=== PATIENT | female | born 1930 | race Caucasian/White ===

== ENCOUNTER 2017-02-12 11:35 | Emergency (ER) | payer MEDICARE, BC ==
[2017-02-12 11:39] VITALS: RESP 13; TEMP 98.5
[2017-02-12 12:28] LABS: APPEARANCE,URINE SLIGHTLY CLOUDY; COLOR,URINE YELLOW; GLUCOSE, URINE (UA) NEGATIVE (NEGATIVE); KETONES,URINE NEGATIVE (NEGATIVE); NITRATE,URINE NEGATIVE (NEGATIVE); OCCULT BLOOD,URINE TRACE INTACT (NEG-TRACE); PH,URINE 7.5
[2017-02-12 12:29] LABS: BILIRUBIN,URINE NEGATIVE (NEGATIVE); LEUKOCYTE ESTERASE ,URINE 2+ (NEGATIVE); RBC,URINE 0-2 (0-3AV/HPF); UROBILINOGEN,URINE 0.2 (0.2-1.0 EU)
[2017-02-12 12:42] LABS: BASOPHILS % (AUTO) 0 % (0-3); EOSINOPHILS % (AUTO) 0 % (0-9); HEMATOCRIT 31 % (35-47); MEAN CORPUSCULAR HGB CONC 35.6 gm/dl (32.0-36.0); MEAN CORPUSCULAR VOLUME 92 fL (81-99); MONOCYTES % (AUTO) 7.7 % (0-12); NEUTROPHILS % (AUTO) 78.3 % (37-80)
[2017-02-12 13:02] VITALS: BP 157/49; PULSE 72; O2SAT 98
[2017-02-12 13:23] LABS: ALBUMIN 3.4 gm/dl (3.4-5.0); CALCIUM 8.7 mg/dl (8.5-10.1); MAGNESIUM 1.9 mg/dl (1.8-2.4); POTASSIUM 3.4 mMol/L (3.5-5.1)
[2017-02-12] MEDS ORDERED: POTASSIUM CHLORIDE 10 MEQ TER PO ONE (14:05)
== END 2017-02-12 14:19 | disposition home or self-care (01) | DRG 690 ==
LOC: ED 11:35
DX: N39.0 Urinary tract infection, site not specified (principal); E87.1 Hypo-osmolality and hyponatremia; E87.5 Hyperkalemia; R60.0 Localized edema; W18.30XA Fall on same level, unspecified, initial encounter
CPT/HCPCS: 36415; 80053; 81001; 83735; 84100; 85025; 87088; 87205; 99283; 99284

== ENCOUNTER 2017-02-14 09:54 | Inpatient (IN) | payer MEDICARE, BC ==
[2017-02-14] MEDS ORDERED: ONDANSETRON HCL 4 MG/2 ML SOL IV ONE (10:14)
[2017-02-14] MEDS ORDERED: SODIUM CHLORIDE 0.9% 1000ML 1,000 ML IV ONE (10:14)
[2017-02-14 10:37] LABS: BASOPHILS % (AUTO) 0 % (0-3); EOSINOPHILS % (AUTO) 0 % (0-9); HEMATOCRIT 32 % (35-47); MEAN CORPUSCULAR HGB CONC 34.6 gm/dl (32.0-36.0); MEAN CORPUSCULAR VOLUME 93 fL (81-99); MONOCYTES % (AUTO) 6.1 % (0-12); NEUTROPHILS % (AUTO) 88.8 % (37-80)
[2017-02-14] MEDS ORDERED: ONDANSETRON HCL 4 MG/2 ML SOL ONE (10:37)
[2017-02-14 10:53] LABS: CALCIUM 8.4 mg/dl (8.5-10.1); GLOM FILT RATE 91 mL/min (>60); SODIUM 127 mMol/L (136-145)
[2017-02-14 10:54] LABS: POTASSIUM 2.8 mMol/L (3.5-5.1)
[2017-02-14] MEDS ORDERED: SODIUM CHLORIDE/KCL 20MEQ 1,000 ML IV ONE ×3 (11:00→12:53)
[2017-02-14 11:56] LABS: APPEARANCE,URINE Slightly Cloudy; BILIRUBIN,URINE NEGATIVE (NEGATIVE); COLOR,URINE Light yellow; GLUCOSE, URINE (UA) TRACE (NEGATIVE); KETONES,URINE 1+ (NEGATIVE); LEUKOCYTE ESTERASE ,URINE NEGATIVE (NEGATIVE); NITRATE,URINE NEGATIVE (NEGATIVE); OCCULT BLOOD,URINE TRACE INTACT (NEG-TRACE); PH,URINE 7.5; UROBILINOGEN,URINE 0.2 (0.2-1.0 EU)
[2017-02-14 11:57] LABS: RBC,URINE 0-3 (0-3AV/HPF); WBC,URINE 0-1 (0-5AV/HPF)
[2017-02-14] MEDS ORDERED: MECLIZINE HYDROCHLORIDE 12.5 MG TAB PO PRN (12:29)
[2017-02-14] MEDS: POTASSIUM CHLORIDE 10 MEQ TER PO SCH ×2 (14:45→20:11)
[2017-02-14] MEDS: TRAMADOL HYDROCHLORIDE 50 MG TAB PO PRN (15:14)
[2017-02-14 17:29] LABS: APPEARANCE,URINE Clear; BILIRUBIN,URINE NEGATIVE (NEGATIVE); COLOR,URINE Yellow; GLUCOSE, URINE (UA) 1+ (NEGATIVE); KETONES,URINE 1+ (NEGATIVE); LEUKOCYTE ESTERASE ,URINE NEGATIVE (NEGATIVE); NITRATE,URINE NEGATIVE (NEGATIVE); OCCULT BLOOD,URINE TRACE INTACT (NEG-TRACE); PH,URINE 7.5; UROBILINOGEN,URINE 0.2 (0.2-1.0 EU)
[2017-02-14] MEDS: CEPHALEXIN 250 MG/5 ML BOTTLE PO SCH (20:11)
[2017-02-15] MEDS: TRAMADOL HYDROCHLORIDE 50 MG TAB PO PRN ×3 (00:10→20:04)
[2017-02-15 07:17] LABS: CALCIUM 7.8 mg/dl (8.5-10.1); POTASSIUM 3.9 mMol/L (3.5-5.1)
[2017-02-15] MEDS ORDERED: BISACODYL 10 MG SUP PR PRN (07:38)
[2017-02-15] MEDS: CONJUGATED ESTROGENS VAG SCH (09:12)
[2017-02-15] MEDS: ASPIRIN EC 81 MG PO SCH (09:12)
[2017-02-15] MEDS: FLUTICASONE PROPIONATE SPR NAS SCH (09:12)
[2017-02-15] MEDS: CEPHALEXIN 250 MG/5 ML BOTTLE PO SCH ×2 (09:13→20:03)
[2017-02-15] MEDS: POTASSIUM CHLORIDE 10 MEQ TER PO SCH ×3 (09:13→20:04)
[2017-02-15] MEDS: TAMOXIFEN CITRATE 20 MG PO SCH (09:14)
[2017-02-15] MEDS: MULTIVITAMIN2 1 EA TAB PO SCH (09:14)
[2017-02-15] MEDS: SODIUM CHLORIDE 1 GM TAB PO SCH (11:41)
[2017-02-15] MEDS: SODIUM CHLORIDE 0.9% FLUSH 10 ML SOL IV SCH ×2 (11:42→20:03)
[2017-02-16] MEDS: ACETAMINOPHEN 500 MG 500 MG TAB PO PRN ×2 (00:06→19:50)
[2017-02-16] MEDS: SODIUM CHLORIDE 0.9% FLUSH 10 ML SOL IV SCH ×3 (04:33→19:51)
[2017-02-16 07:14] LABS: BASOPHILS % (AUTO) 1 % (0-3); EOSINOPHILS % (AUTO) 1 % (0-9); HEMATOCRIT 33 % (35-47); MEAN CORPUSCULAR HGB CONC 36.2 gm/dl (32.0-36.0); MEAN CORPUSCULAR VOLUME 92 fL (81-99); MONOCYTES % (AUTO) 12.4 % (0-12); NEUTROPHILS % (AUTO) 63.9 % (37-80)
[2017-02-16 07:30] LABS: CALCIUM 8.5 mg/dl (8.5-10.1); POTASSIUM 4.4 mMol/L (3.5-5.1)
[2017-02-16] MEDS: POTASSIUM CHLORIDE 10 MEQ TER PO SCH ×2 (08:14→20:24)
[2017-02-16] MEDS: CEPHALEXIN 250 MG/5 ML BOTTLE PO SCH ×2 (08:15→20:23)
[2017-02-16] MEDS: ASPIRIN EC 81 MG PO SCH (08:16)
[2017-02-16] MEDS: MAGNESIUM HYDROXIDE 30 ML SUS PO PRN (08:16)
[2017-02-16] MEDS: MULTIVITAMIN2 1 EA TAB PO SCH (08:17)
[2017-02-16] MEDS: SODIUM CHLORIDE 1 GM TAB PO SCH (08:17)
[2017-02-16] MEDS: TAMOXIFEN CITRATE 20 MG PO SCH (08:17)
[2017-02-16] MEDS: CONJUGATED ESTROGENS VAG SCH (08:21)
[2017-02-16] MEDS: FLUTICASONE PROPIONATE SPR NAS SCH (08:22)
[2017-02-16 09:10] LABS: ALBUMIN 3.1 gm/dl (3.4-5.0)
[2017-02-16] MEDS: LISINOPRIL 5 MG TAB PO SCH (10:26)
[2017-02-16] MEDS: TRAMADOL HYDROCHLORIDE 50 MG TAB PO PRN (20:24)
[2017-02-17] MEDS: ACETAMINOPHEN 500 MG 500 MG TAB PO PRN (03:52)
[2017-02-17] MEDS: TRAMADOL HYDROCHLORIDE 50 MG TAB PO PRN ×3 (04:14→20:32)
[2017-02-17] MEDS: SODIUM CHLORIDE 0.9% FLUSH 10 ML SOL IV SCH ×3 (06:50→20:33)
[2017-02-17 07:50] LABS: CALCIUM 8.2 mg/dl (8.5-10.1); POTASSIUM 4.4 mMol/L (3.5-5.1)
[2017-02-17] MEDS: CEPHALEXIN 250 MG/5 ML BOTTLE PO SCH (08:35)
[2017-02-17] MEDS: ASPIRIN EC 81 MG PO SCH (08:38)
[2017-02-17] MEDS: FLUTICASONE PROPIONATE SPR NAS SCH (08:39)
[2017-02-17] MEDS: MULTIVITAMIN2 1 EA TAB PO SCH (08:39)
[2017-02-17] MEDS: TAMOXIFEN CITRATE 20 MG PO SCH (08:40)
[2017-02-17] MEDS: POTASSIUM CHLORIDE 10 MEQ TER PO SCH ×2 (08:41→20:33)
[2017-02-17] MEDS: LISINOPRIL 5 MG TAB PO SCH (08:41)
[2017-02-18] MEDS: ACETAMINOPHEN 500 MG 500 MG TAB PO PRN (02:02)
[2017-02-18] MEDS: SODIUM CHLORIDE 0.9% FLUSH 10 ML SOL IV SCH ×3 (04:43→20:23)
[2017-02-18 07:39] LABS: CALCIUM 8.2 mg/dl (8.5-10.1); POTASSIUM 4.3 mMol/L (3.5-5.1)
[2017-02-18] MEDS: MULTIVITAMIN2 1 EA TAB PO SCH (08:45)
[2017-02-18] MEDS: ASPIRIN EC 81 MG PO SCH (08:45)
[2017-02-18] MEDS: TAMOXIFEN CITRATE 20 MG PO SCH (08:46)
[2017-02-18] MEDS: POTASSIUM CHLORIDE 10 MEQ TER PO SCH ×2 (08:47→20:24)
[2017-02-18] MEDS: METOPROLOL SUCCINATE 50 MG ER TAB PO SCH (09:08)
[2017-02-18] MEDS: FLUTICASONE PROPIONATE SPR NAS SCH (09:12)
[2017-02-18] MEDS: TRAMADOL HYDROCHLORIDE 50 MG TAB PO PRN (17:20)
[2017-02-18] MEDS: MAGNESIUM HYDROXIDE 30 ML SUS PO PRN (18:56)
[2017-02-18] MEDS: SODIUM CHLORIDE 0.9% 1000ML 1,000 ML IV SCH (20:23)
[2017-02-18] MEDS: ESTRADIOL 0.1 MG/GM VG SCH (20:24)
[2017-02-19] MEDS: ACETAMINOPHEN 500 MG 500 MG TAB PO PRN (01:50)
[2017-02-19] MEDS: SODIUM CHLORIDE 0.9% 1000ML 1,000 ML IV SCH ×3 (02:59→20:03)
[2017-02-19] MEDS: TRAMADOL HYDROCHLORIDE 50 MG TAB PO PRN ×2 (04:45→17:36)
[2017-02-19] MEDS: SODIUM CHLORIDE 0.9% FLUSH 10 ML SOL IV SCH ×3 (04:59→20:07)
[2017-02-19 08:05] LABS: POTASSIUM 4.7 mMol/L (3.5-5.1)
[2017-02-19] MEDS: ASPIRIN EC 81 MG PO SCH (08:29)
[2017-02-19] MEDS: POTASSIUM CHLORIDE 10 MEQ TER PO SCH ×2 (08:30→20:16)
[2017-02-19] MEDS: MULTIVITAMIN2 1 EA TAB PO SCH (08:31)
[2017-02-19] MEDS: FLUTICASONE PROPIONATE SPR NAS SCH (08:31)
[2017-02-19] MEDS: TAMOXIFEN CITRATE 20 MG PO SCH (08:32)
[2017-02-19] MEDS: METOPROLOL SUCCINATE 50 MG ER TAB PO SCH (08:39)
[2017-02-19] MEDS ORDERED: SODIUM CHLORIDE 0.9% 1000ML 1,000 ML IV SCH (09:50)
[2017-02-19] MEDS: [UNRECOGNIZED DRUG - OTHER] EACHEYE PRN ×2 (10:00→20:32)
[2017-02-20] MEDS: SODIUM CHLORIDE 0.9% 1000ML 1,000 ML IV SCH ×2 (02:53→09:46)
[2017-02-20] MEDS: SODIUM CHLORIDE 0.9% FLUSH 10 ML SOL IV SCH ×2 (06:30→11:22)
[2017-02-20] MEDS: MULTIVITAMIN2 1 EA TAB PO SCH (08:34)
[2017-02-20] MEDS: ASPIRIN EC 81 MG PO SCH (08:34)
[2017-02-20] MEDS: POTASSIUM CHLORIDE 10 MEQ TER PO SCH ×2 (08:34→20:07)
[2017-02-20] MEDS: FLUTICASONE PROPIONATE SPR NAS SCH (08:35)
[2017-02-20] MEDS: TAMOXIFEN CITRATE 20 MG PO SCH (08:36)
[2017-02-20] MEDS: METOPROLOL SUCCINATE 50 MG ER TAB PO SCH (08:37)
[2017-02-20] MEDS: ACETAMINOPHEN 500 MG 500 MG TAB PO PRN ×2 (08:48→15:28)
[2017-02-20] MEDS: [UNRECOGNIZED DRUG - OTHER] EACHEYE PRN (09:00)
[2017-02-21] MEDS: ASPIRIN EC 81 MG PO SCH (09:07)
[2017-02-21] MEDS: POTASSIUM CHLORIDE 10 MEQ TER PO SCH ×2 (09:12→20:27)
[2017-02-21] MEDS: FLUTICASONE PROPIONATE SPR NAS SCH (09:12)
[2017-02-21] MEDS: TAMOXIFEN CITRATE 20 MG PO SCH (09:13)
[2017-02-21] MEDS: MULTIVITAMIN2 1 EA TAB PO SCH (09:13)
[2017-02-21] MEDS: METOPROLOL SUCCINATE 50 MG ER TAB PO SCH (09:16)
[2017-02-21] MEDS: ESTRADIOL 0.1 MG/GM VG SCH (10:48)
[2017-02-21] MEDS: [UNRECOGNIZED DRUG - OTHER] EACHEYE PRN (11:03)
[2017-02-21] MEDS: ACETAMINOPHEN 500 MG 500 MG TAB PO PRN (17:28)
[2017-02-21] MEDS: TRAMADOL HYDROCHLORIDE 50 MG TAB PO PRN (20:27)
[2017-02-22] MEDS: ACETAMINOPHEN 500 MG 500 MG TAB PO PRN ×3 (02:13→17:42)
[2017-02-22 07:21] LABS: CALCIUM 8.5 mg/dl (8.5-10.1); POTASSIUM 3.9 mMol/L (3.5-5.1)
[2017-02-22] MEDS: ASPIRIN EC 81 MG PO SCH (08:31)
[2017-02-22] MEDS: MULTIVITAMIN2 1 EA TAB PO SCH (08:31)
[2017-02-22] MEDS: METOPROLOL SUCCINATE 50 MG ER TAB PO SCH (08:32)
[2017-02-22] MEDS: TAMOXIFEN CITRATE 20 MG PO SCH (08:33)
[2017-02-22] MEDS: POTASSIUM CHLORIDE 10 MEQ TER PO SCH ×2 (08:33→20:00)
[2017-02-22] MEDS: FLUTICASONE PROPIONATE SPR NAS SCH (08:33)
[2017-02-22] MEDS: [UNRECOGNIZED DRUG - OTHER] EACHEYE PRN (08:34)
[2017-02-23] MEDS: ACETAMINOPHEN 500 MG 500 MG TAB PO PRN (03:05)
[2017-02-23] MEDS: METOPROLOL SUCCINATE 50 MG ER TAB PO SCH ×3 (08:58→11:45)
[2017-02-23] MEDS: POTASSIUM CHLORIDE 10 MEQ TER PO SCH ×2 (09:00→20:34)
[2017-02-23] MEDS: MULTIVITAMIN2 1 EA TAB PO SCH (09:00)
[2017-02-23] MEDS: TAMOXIFEN CITRATE 20 MG PO SCH (09:01)
[2017-02-23] MEDS: FLUTICASONE PROPIONATE SPR NAS SCH (09:31)
[2017-02-23 10:04] LABS: CALCIUM 8.2 mg/dl (8.5-10.1); POTASSIUM 3.8 mMol/L (3.5-5.1)
[2017-02-23] MEDS: ASPIRIN EC 81 MG PO SCH (17:48)
[2017-02-23] MEDS: [UNRECOGNIZED DRUG - OTHER] EACHEYE PRN (20:34)
[2017-02-24 07:26] LABS: POTASSIUM 4.3 mMol/L (3.5-5.1)
[2017-02-24 07:51] VITALS: BP 179/84; PULSE 65; RESP 20; TEMP 98.3; O2SAT 96
[2017-02-24] MEDS: ASPIRIN EC 81 MG PO SCH (08:19)
[2017-02-24] MEDS: FLUTICASONE PROPIONATE SPR NAS SCH (08:20)
[2017-02-24] MEDS: POTASSIUM CHLORIDE 10 MEQ TER PO SCH (08:20)
[2017-02-24] MEDS: TAMOXIFEN CITRATE 20 MG PO SCH (08:21)
[2017-02-24] MEDS: MULTIVITAMIN2 1 EA TAB PO SCH (08:21)
[2017-02-24] MEDS: METOPROLOL SUCCINATE 50 MG ER TAB PO SCH (08:22)
[2017-02-27 13:34] LABS: CATECHOLAMINE 24HR URINE 24
== END 2017-02-24 09:33 | disposition short-term general hospital (02) | DRG 945 ==
LOC: ED 09:54 → UNDOADMIN 12:16 → ACUTE CARE 12:16
PROVIDERS: ADMIT Family Medicine; ATTEND Family Medicine
PROC: F01ZDFZ Gait and/or Balance Assessment using Assistive, Adaptive, Supportive or Protective Equipment (ICD-10-PCS; principal; 2017-02-15)
PROC: F01ZBZZ Bed Mobility Assessment (ICD-10-PCS; 2017-02-15)
PROC: F01ZCZZ Transfer Assessment (ICD-10-PCS; 2017-02-15)
PROC: F02Z0ZZ Bathing/Showering Assessment (ICD-10-PCS; 2017-02-15)
PROC: F02Z0ZZ Bathing/Showering Assessment (ICD-10-PCS; 2017-02-15)
PROC: F02Z3ZZ Grooming/Personal Hygiene Assessment (ICD-10-PCS; 2017-02-15)
DX: R53.1 Weakness (principal); E22.2 Syndrome of inappropriate secretion of antidiuretic hormone; R68.83 Chills (without fever); E87.6 Hypokalemia; Z87.440 Personal history of urinary (tract) infections; R07.89 Other chest pain; I10 Essential (primary) hypertension
CPT/HCPCS: 36415; 51798; 70450; 71010; 71260; 80048; 80053; 81001; 82150; 84132; 84295; 84300; 84443; 84484; 85025; 93005; 93012; 96365; 96366; 96374; 99284; 99285; J2405; Q9967; A6232

== ENCOUNTER 2017-03-30 14:58 | Outpatient (CLI) | payer MEDICARE, BC ==
[2017-02-24 07:51] VITALS: O2SAT 96
[2017-03-30 15:51] LABS: CALCIUM 9.1 mg/dl (8.5-10.1); POTASSIUM 4.4 mMol/L (3.5-5.1); URIC ACID 1.7 mg/dl (2.6-7.2)
[2017-03-30 16:20] LABS: APPEARANCE,URINE Cloudy; BILIRUBIN,URINE NEGATIVE (NEGATIVE); COLOR,URINE Yellow; GLUCOSE, URINE (UA) NEGATIVE (NEGATIVE); KETONES,URINE NEGATIVE (NEGATIVE); LEUKOCYTE ESTERASE ,URINE TRACE (NEGATIVE); NITRATE,URINE NEGATIVE (NEGATIVE); OCCULT BLOOD,URINE NEGATIVE (NEG-TRACE); UROBILINOGEN,URINE 0.2 (0.2-1.0 EU)
[2017-03-30 16:41] LABS: RBC,URINE 0-1 (0-3AV/HPF)
== END 2017-03-30 14:59 | disposition home or self-care (01) | DRG 641 ==
LOC: CONVCARE 14:58
PROVIDERS: ATTEND Internal Medicine
DX: E87.1 Hypo-osmolality and hyponatremia (principal); I10 Essential (primary) hypertension; R35.1 Nocturia; R35.8 Other polyuria
CPT/HCPCS: 36415; 80048; 81001; 84300; 84550; 87088

== ENCOUNTER 2017-07-12 11:15 | Emergency (ER) | payer MEDICARE, BC ==
[2017-07-12 11:26] VITALS: RESP 16
[2017-07-12] MEDS ORDERED: TRAMADOL HYDROCHLORIDE 50 MG TAB PO ONE (13:13)
[2017-07-12] MEDS ORDERED: KETOROLAC TROMETHAMINE 30 MG/ML SOL IM ONE (13:13)
[2017-07-12] MEDS ORDERED: TRAMADOL HYDROCHLORIDE 50 MG TAB ONE (13:15)
[2017-07-12] MEDS ORDERED: KETOROLAC TROMETHAMINE 30 MG/ML SOL ONE (13:15)
[2017-07-12 16:49] VITALS: BP 121/56; PULSE 70; TEMP 98.6; O2SAT 95
== END 2017-07-12 16:03 | DRG 536 ==
LOC: ED 11:15
DX: S32.592A Other specified fracture of left pubis, initial encounter for closed fracture (principal); S32.19XA Other fracture of sacrum, initial encounter for closed fracture; W18.30XA Fall on same level, unspecified, initial encounter; R53.1 Weakness; M54.2 Cervicalgia
CPT/HCPCS: 70450; 72125; 72192; 73501; 99285; J1885

== ENCOUNTER 2017-09-13 08:42 | Outpatient (CLI) | payer MEDICARE, BC ==
[2017-07-12 16:49] VITALS: O2SAT 95
== END 2017-09-13 08:43 | disposition home or self-care (01) | DRG 561 ==
LOC: CONVCARE 08:42
PROVIDERS: ATTEND Orthopaedic Surgery
DX: S32.10XD Unspecified fracture of sacrum, subsequent encounter for fracture with routine healing (principal)
CPT/HCPCS: 72120; 72170

== ENCOUNTER 2017-11-02 18:27 | Emergency (ER) | payer MEDICARE, BC ==
[2017-11-02 18:39] VITALS: RESP 18; TEMP 97.4
[2017-11-02 18:59] LABS: BASOPHILS % (AUTO) 0 % (0-3); EOSINOPHILS % (AUTO) 0 % (0-9); HEMATOCRIT 38 % (35-47); MEAN CORPUSCULAR HGB CONC 34.9 gm/dl (32.0-36.0); MEAN CORPUSCULAR VOLUME 88 fL (81-99); MONOCYTES % (AUTO) 12.8 % (0-12); NEUTROPHILS % (AUTO) 66.5 % (37-80)
[2017-11-02 19:07] LABS: CALCIUM 8.9 mg/dl (8.5-10.1); POTASSIUM 3.6 mMol/L (3.5-5.1)
[2017-11-02 19:18] LABS: APPEARANCE,URINE Slightly Cloudy; BILIRUBIN,URINE NEGATIVE (NEGATIVE); COLOR,URINE Light yellow; GLUCOSE, URINE (UA) NEGATIVE (NEGATIVE); KETONES,URINE NEGATIVE (NEGATIVE); LEUKOCYTE ESTERASE ,URINE 3+ (NEGATIVE); NITRATE,URINE NEGATIVE (NEGATIVE); OCCULT BLOOD,URINE TRACE INTACT (NEG-TRACE); UROBILINOGEN,URINE 0.2 (0.2-1.0 EU)
[2017-11-02 19:35] LABS: RBC,URINE 0-3 (0-3AV/HPF); WBC,URINE 20-30 (0-5AV/HPF)
[2017-11-02] MEDS ORDERED: CIPROFLOXACIN HCL 500 MG TAB PO ONE (20:20)
[2017-11-02 21:05] VITALS: BP 190/78; PULSE 80; O2SAT 97
== END 2017-11-02 20:40 | DRG 690 ==
LOC: ED 18:27
DX: N39.0 Urinary tract infection, site not specified (principal); E87.1 Hypo-osmolality and hyponatremia
CPT/HCPCS: 36415; 80048; 81001; 85025; 87077; 87088; 87186; 99282; 99283